=== PATIENT | male | born 1940 | race Hispanic/Latino ===

== ENCOUNTER 2018-08-16 22:17 | Observation (INO) | payer OTHER ==
[~2018-08-16] VITALS: Ht 165.1 cm; Wt 85.0 kg
[~2018-08-16 22:17] MED LIST: LEVO500T2 PO
[2018-08-16] MEDS ORDERED: ASPIRIN 325 MG TABLET ONE (22:38)
[2018-08-16 22:48] LABS: EOSINOPHILS % (AUTO) 2.6 % (0.0-8.0); LYMPHOCYTES % (AUTO) 32.1 % (21.0-51.0); MEAN CORPUSCULAR HEMOGLOBIN 34.1 pg (27.0-33.0); MEAN CORPUSCULAR HGB CONC 34.2 g/dL (32.0-36.0); MEAN CORPUSCULAR VOLUME 99.7 fL (79-99); MONOCYTES % (AUTO) 8.1 % (3.0-13.0); NEUTROPHILS % (AUTO) 56.2 % (40.0-77.0); NUCLEATED RED BLOOD CELLS 0.1 % (0.0-0.19); PLATELET COUNT (AUTO) 181 K/uL (130-400); RED BLOOD CELL COUNT(AUTO) 4.02 MIL/uL (4.50-6.20); RED CELL DISTRIBUTION WIDTH 13.1 % (11.0-15.5); WHITE BLOOD COUNT (AUTO) 6.3 K/uL (4.8-10.8)
[2018-08-16 22:58] LABS: CREATININE 1.2 mg/dL (0.5-1.5); POTASSIUM 3.7 mmol/L (3.5-5.1)
[2018-08-16 22:59] LABS: INR 1.04 (0.85-1.15); PARTIAL THROMBOPLASTIN TIME 32.9 SEC (26.3-35.5); PROTHROMBIN TIME 10.9 SEC (9.6-11.6)
[2018-08-16 23:09] LABS: ALBUMIN 3.4 g/dL (3.5-5.0); BILIRUBIN,TOTAL 0.6 mg/dL (0.2-1.0); TOTAL PROTEIN, SERUM 6.9 g/dL (6.0-8.3)
[2018-08-16] MEDS ORDERED: ONDANSETRON HCL 4 MG/2 ML VIAL ONE (23:45)
[2018-08-16] MEDS ORDERED: MORPHINE SULFATE 2 MG/ML 1ML SYG ONE (23:46)
[2018-08-17] MEDS ORDERED: MORPHINE SULFATE 2 MG/ML 1ML SYG IV PRN (01:15)
[2018-08-17] MEDS ORDERED: ONDANSETRON HCL 4 MG/2 ML VIAL IV PRN (01:15)
[2018-08-17] MEDS ORDERED: ACETAMINOPHEN 325 MG TAB PO PRN (01:15)
[2018-08-17] MEDS ORDERED: NITROGLYCERIN 1GM/1 INCH PACKET TD ONE (01:28)
[2018-08-17] MEDS ORDERED: ASPI-1197 PO (02:18)
[2018-08-17] MEDS ORDERED: LOSA50TA64 PO (02:18)
[2018-08-17] MEDS ORDERED: DUTA1CPM4 PO (02:18)
[2018-08-17] MEDS ORDERED: LORA10TA7 PO (02:18)
[2018-08-17] MEDS ORDERED: CLOP75TA14 PO (02:18)
[2018-08-17] MEDS ORDERED: SIMV20TA6 PO (02:18)
[2018-08-17] MEDS: NITROGLYCERIN 1GM/1 INCH PACKET TD SCH ×4 (02:37→18:52)
[2018-08-17 02:55] VITALS: BP 109/59
[2018-08-17 04:00] VITALS: BP 136/64
[2018-08-17 05:45] LABS: HDL CHOLESTEROL 32 mg/dL (29-71); LDL DIRECT 55 mg/dL (0-99); TRIGLYCERIDES 247 mg/dL (30-200)
[2018-08-17 05:57] LABS: CHOLESTEROL 130 mg/dL (<200)
[2018-08-17 07:30] VITALS: BP 133/59
[2018-08-17] MEDS: FAMOTIDINE/PF 20 MG/2 ML VIAL IV SCH ×2 (08:18→20:34)
[2018-08-17] MEDS: METOPROLOL TARTRATE 25 MG TAB PO SCH ×2 (08:18→20:34)
[2018-08-17] MEDS: ENOXAPARIN SODIUM 40 MG/0.4 ML SYRINGE SQ SCH ×2 (08:20→20:36)
[2018-08-17] MEDS ORDERED: ASPIRIN 325 MG TABLET PO SCH (09:00)
[2018-08-17 11:00] VITALS: BP 112/57
[2018-08-17] MEDS ORDERED: LEVOFLOXACIN 500 MG/D5W 100 ML 100 ML IV SCH (11:00)
[2018-08-17] MEDS: IPRATROPIUM/ALBUTEROL SULFATE 3 ML SOLUTION IH SCH ×3 (13:24→23:16)
--- NOTE | 2018-08-17 13:25 | NUR ---
Smoking assessment: Pt states he smoked 1pk/wk Addendum: 08/17/18 at 1342 by MIKALA BETH RT Amended: Links added.
[2018-08-17 16:00] VITALS: BP 117/61
[2018-08-17 20:34] VITALS: BP 109/58
[2018-08-17] MEDS ORDERED: ATORVASTATIN CALCIUM 10 MG TABLET PO SCH (21:00)
[2018-08-17] MEDS ORDERED: DUTASTERIDE PO SCH (21:00)
[2018-08-17] MEDS ORDERED: SIMVASTATIN 20 MG TABLET PO SCH (21:00)
[2018-08-17] MEDS ORDERED: TAMSULOSIN PO SCH (21:00)
[2018-08-17] MEDS ORDERED: LOSARTAN 50 MG TABLET PO SCH (21:00)
[2018-08-17] MEDS ORDERED: CLOPIDOGREL BISULFATE 75 MG TAB PO SCH (21:00)
[2018-08-18 00:22] VITALS: BP 113/66
[2018-08-18] MEDS: NITROGLYCERIN 1GM/1 INCH PACKET TD SCH ×2 (03:13→10:33)
[2018-08-18 04:44] VITALS: BP 109/59
[2018-08-18 06:12] LABS: BASOPHILS % (AUTO) 0.6 % (0.0-5.0); EOSINOPHILS % (AUTO) 1.4 % (0.0-8.0); HEMATOCRIT 36.3 % (42-54); LYMPHOCYTES % (AUTO) 24.3 % (21.0-51.0); MEAN CORPUSCULAR HEMOGLOBIN 34.3 pg (27.0-33.0); MEAN CORPUSCULAR HGB CONC 34.4 g/dL (32.0-36.0); MEAN CORPUSCULAR VOLUME 99.9 fL (79-99); NEUTROPHILS % (AUTO) 63.7 % (40.0-77.0); PLATELET COUNT (AUTO) 161 K/uL (130-400); RED BLOOD CELL COUNT(AUTO) 3.64 MIL/uL (4.50-6.20); WHITE BLOOD COUNT (AUTO) 5.8 K/uL (4.8-10.8)
[2018-08-18 06:22] LABS: CREATININE 1.1 mg/dL (0.5-1.5); POTASSIUM 4.1 mmol/L (3.5-5.1)
[2018-08-18] MEDS: IPRATROPIUM/ALBUTEROL SULFATE 3 ML SOLUTION IH SCH ×2 (07:05→11:31)
[2018-08-18 07:30] VITALS: BP 125/62
[2018-08-18] MEDS ORDERED: ASPIRIN 81MG TAB.CHEW PO SCH (09:00)
[2018-08-18] MEDS ORDERED: LORATADINE 10 MG TABLET PO SCH (09:00)
[2018-08-18] MEDS: METOPROLOL TARTRATE 25 MG TAB PO SCH (10:18)
[2018-08-18] MEDS: FAMOTIDINE/PF 20 MG/2 ML VIAL IV SCH (10:18)
[2018-08-18] MEDS: ENOXAPARIN SODIUM 40 MG/0.4 ML SYRINGE SQ SCH (10:22)
[2018-08-18 11:00] VITALS: BP 132/65
[2018-08-18] MEDS ORDERED: METO25 PO (12:54)
[2018-08-18] MEDS ORDERED: LEVO500T2 PO (12:54)
--- NOTE | 2018-08-18 15:39 | NUR ---
DISCHARGE SUMMARY REVIEW WITH PT. AND CONT DISCHARGE ANTIBOTICS AND DR. GARRETT TO FOLLOW SL TO HIS [facility], [place] ,WITH NO HEMATOMA NOTED . DENIES ANY CHEST PAIN OR SHORT OF BREATH . .
== END 2018-08-18 15:39 | disposition home or self-care (01) ==
LOC: EDH 22:17 → EDHIP 08-17 01:02 → 3DH 08-17 01:39
PROVIDERS: ADMIT Hospitalist; ATTEND Hospitalist
DX: I20.9 Angina pectoris, unspecified (principal); I10 Essential (primary) hypertension; J18.9 Pneumonia, unspecified organism; E78.5 Hyperlipidemia, unspecified; Z90.49 Acquired absence of other specified parts of digestive tract; Z79.899 Other long term (current) drug therapy; Z79.01 Long term (current) use of anticoagulants
CPT/HCPCS: 36415 ×3; 71045; 80048; 80053; 80061; 82550; 83690; 83874; 83880; 84484 ×2; 85025 ×2; 85610; 85730; 93005; 93306; 94640 ×5; 94664; 96365; 96372 ×2; 96375; 96376 ×2; 99284; G0378 ×39; J1650 ×3; J1956 ×2; J2405; J3490 ×3

== ENCOUNTER → 2018-09-12 | Outpatient (CLI) | payer OTHER ==
[~2018-09-12] MED LIST changes: +ASPI-1197 PO; +CLOP75TA14 PO; +DUTA1CPM4 PO; +LORA10TA7 PO; +LOSA50TA64 PO; +METO25 PO; +SIMV20TA6 PO
== END | disposition home or self-care (01) ==
LOC: RAH 08:33
PROVIDERS: ATTEND Internal Medicine
DX: J18.8 Other pneumonia, unspecified organism (principal)
CPT/HCPCS: 71046

== ENCOUNTER 2019-02-04 14:41 | Emergency (ER) | payer OTHER ==
[2019-02-04] MEDS ORDERED: TETANUS/DIPHTHERIA TOXOID [ADULT] 0.5 ML VIAL IM ONE (15:38)
== END 2019-02-04 18:35 | disposition home or self-care (01) ==
LOC: EDH 14:41
DX: S01.01XA Laceration without foreign body of scalp, initial encounter (principal); S02.2XXA Fracture of nasal bones, initial encounter for closed fracture; E78.5 Hyperlipidemia, unspecified; I10 Essential (primary) hypertension; V68.5XXA Driver of heavy transport vehicle injured in noncollision transport accident in traffic accident, initial encounter; Y93.89 Activity, other specified; Y92.69 Other specified industrial and construction area as the place of occurrence of the external cause; Y99.8 Other external cause status
CPT/HCPCS: 12002; 70450; 70486; 72125; 90471; 90714; 99291

== ENCOUNTER → 2019-06-04 | Outpatient (CLI) | payer OTHER ==
[~2019-06-04] MED LIST changes: +SIMV-43 PO; -SIMV20TA6 PO
== END | disposition home or self-care (01) ==
LOC: RAH 11:18
PROVIDERS: ATTEND Internal Medicine
DX: M17.0 Bilateral primary osteoarthritis of knee (principal); M47.816 Spondylosis without myelopathy or radiculopathy, lumbar region; Z90.49 Acquired absence of other specified parts of digestive tract
CPT/HCPCS: 72100; 73521

== ENCOUNTER 2019-09-21 11:31 | Emergency (ER) | payer OTHER ==
[2019-09-21 12:03] LABS: BASOPHILS % (AUTO) 0.4 % (0.0-5.0); EOSINOPHILS % (AUTO) 0.6 % (0.0-8.0); HEMATOCRIT 42.3 % (42-54); LYMPHOCYTES % (AUTO) 24.9 % (21.0-51.0); MEAN CORPUSCULAR HGB CONC 33.6 g/dL (32.0-36.0); MEAN CORPUSCULAR VOLUME 98.4 fL (79-99); MONOCYTES % (AUTO) 9.2 % (3.0-13.0); NEUTROPHILS % (AUTO) 64.3 % (40.0-77.0); PLATELET COUNT (AUTO) 205 K/uL (130-400); RED CELL DISTRIBUTION WIDTH 11.9 % (11.0-15.5); WHITE BLOOD COUNT (AUTO) 6.7 K/uL (4.8-10.8)
[2019-09-21 12:10] LABS: APPEARANCE,URINE TURBID (CLEAR); BILIRUBIN,URINE SMALL (NEGATIVE); COLOR,URINE YELLOW (YELLOW); GLUCOSE, URINE (UA) 250 mg/dL (NEGATIVE); KETONES,URINE NEGATIVE (NEGATIVE); LEUKOCYTE ESTERASE ,URINE MODERATE (NEGATIVE); NITRATE,URINE POSITIVE (NEGATIVE); OCCULT BLOOD,URINE SMALL (NEGATIVE); PH,URINE 5.5 (5.0-8.0); PROTEIN,URINE 30 mg/dL (NEGATIVE)
[2019-09-21 12:28] LABS: POTASSIUM 3.8 mmol/L (3.5-5.1)
[2019-09-21 12:33] LABS: RBC,URINE 0-1 /HPF (0-1); WBC,URINE >100 /HPF (0-1)
[2019-09-21 12:34] LABS: BACTERIA,URINE Many /HPF (None Seen); MUCUS,URINE Rare LPF (None Seen); SQUAMOUS EPITHELIAL CELL,UR Rare /HPF (0-2)
[2019-09-21] MEDS ORDERED: SODIUM CHLORIDE 0.9% 1000ML 1,000 ML IV ONE (13:30)
[2019-09-21] MEDS ORDERED: CEFTRIAXONE SODIUM 1 GM ONE (13:30)
== END 2019-09-21 14:18 | disposition home or self-care (01) ==
LOC: EDH 11:31
DX: N39.0 Urinary tract infection, site not specified (principal); E78.5 Hyperlipidemia, unspecified; I10 Essential (primary) hypertension; Z87.891 Personal history of nicotine dependence
CPT/HCPCS: 36415; 80048; 81001; 82948; 85025; 87077; 87088; 87186; 96374; 99283; J0696; J7030

== ENCOUNTER 2024-04-21 12:36 | Emergency (ER) | payer OTHER ==
[~2024-04-21] VITALS: Ht 165.1 cm; Wt 79.8 kg
[~2024-04-21 12:36] MED LIST changes: +CLOP-31 PO; -CLOP75TA14 PO
[2024-04-21 12:54] VITALS: BP 125/58; PULSE 75; RESP 16; TEMP 97.8; O2SAT 99
[2024-04-21] MEDS ORDERED: ACET-2079 PO (12:57)
[2024-04-21] MEDS: CYCLOBENZAPRINE HCL 10 MG TABLET PO ONE (13:02)
[2024-04-21] MEDS: dexaMETHasone SOD PHOSPHATE 4 MG/ML 1ML VIAL IM ONE (13:03)
[2024-04-21] MEDS: acetaMINOPHEN WITH coDEINE 1 TAB TAB PO ONE (13:03)
[2024-04-21] MEDS: ibuPROFEN 600 MG TABLET PO ONE (13:03)
== END 2024-04-21 13:22 | disposition home or self-care (01) ==
LOC: EDH 12:36
DX: M54.41 Lumbago with sciatica, right side (principal); E11.9 Type 2 diabetes mellitus without complications; E78.00 Pure hypercholesterolemia, unspecified; I10 Essential (primary) hypertension; Z79.82 Long term (current) use of aspirin; Z79.899 Other long term (current) drug therapy
CPT/HCPCS: 99284; 96372; J1100

== ENCOUNTER → 2024-04-22 | Outpatient (CLI) | payer OTHER ==
[~2024-04-22] MED LIST changes: +ACET-2079 PO
== END | disposition home or self-care (01) ==
LOC: RAH 11:15
PROVIDERS: ATTEND Clinical Nurse Specialist Family Health
DX: M47.26 Other spondylosis with radiculopathy, lumbar region (principal); M25.78 Osteophyte, vertebrae; M54.31 Sciatica, right side
CPT/HCPCS: 72100